=== PATIENT | female | born 1960 | race Caucasian/White ===

== ENCOUNTER 2019-11-09 14:52 | Outpatient (CLI) | payer BC, SELFPAY ==
[2019-11-09 16:17] LABS: Calculated LDL 120 mg/dL; Cholesterol 187 mg/dL (<200); HDL Cholesterol 54 mg/dL (40-60); Triglyceride 65 mg/dL (<150)
[2019-11-09 16:34] LABS: Hemoglobin A1C 5.4 % (4.5-6.2)
[2019-11-10 04:46] LABS: Vitamin D 25 Total 42.1 ng/ml (30-100)
== END 2019-11-09 15:12 ==
PROVIDERS: Nurse Practitioner Women's Health; PCP Family Medicine; Visit Provider Advanced Practice Midwife
DX: Z13.220 Encounter for screening for lipoid disorders (principal); Z13.21 Encounter for screening for nutritional disorder; Z13.1 Encounter for screening for diabetes mellitus
CPT/HCPCS: 36415; 80061; 82306; 83036

== ENCOUNTER 2019-11-09 16:00 | Outpatient (REF) | payer BC, SELFPAY ==
--- NOTE | 2019-11-09 15:00 | PAPFT_PTH ---
PATIENT: Joanne Conroy LOC: [facility] U#:[id number] AGE/SX: 59/F ROOM: RE11/09/[address]: Madalyn Levy NP : 1960 BED: DIS: 11/09/2019 SPEC #: [id number] RECD: 11/09/19 18:08 STATUS: MAYUR RECoreen #: [id number] JOSESITO: 11/09/19 15:[address]: Madalyn Levy NP DEPT: [facility] Cytology RECD BY: Shikha Choe ENTERED: 11/09/19 18:09 SP TYPE: PAPFT OTHR DR: Kim Hernandez Tissues: 1 - CX/ENDOCX FOR PAP SMEARS Procedures: PAP THIN PREP/UVM Screening HPV DNA PROBE Comments: [id number]
== END 2019-11-09 16:20 ==
LOC: LBN 16:00
PROVIDERS: PCP Family Medicine; Visit Provider Nurse Practitioner Women's Health
DX: Z12.4 Encounter for screening for malignant neoplasm of cervix (principal)
CPT/HCPCS: 88142; 87624

== ENCOUNTER 2019-12-01 01:58 | Outpatient (CLI) | payer BC, SELFPAY ==
--- NOTE | 2019-12-01 12:48 | DI.MAMMO_ITS ---
EXAM: MG MAMMO SCREENING CLINICAL HISTORY: screening TECHNIQUE: Mammograms were interpreted according to the usual protocol including computer analysis w [employer] CAD system, tomosynthesis and C-view imaging. COMPARISON: Current examination is compared with previous examinations including December 2017 FINDINGS: The breasts are of moderate density with fairly symmetrical distribution of fibroglandular tissue. N o dominant mass or clumped microcalcification is identified in either breast. Current examination is compared with previous examinations including December 2017 and there has been no gross interval alondra nge in appearance in comparison with the previous studies. IMPRESSION: No specific evidence of malignancy at this time. Routine screening examinations are suggested at year ly intervals in this age group according to the ACS/ACR guidelines. Category 1, breast density categ ory B. BI-RADS Cat 1 - Negative Breast Density - Category B - Scattered areas of fibroglandular density
== END 2019-12-01 02:18 ==
PROVIDERS: PCP Family Medicine; Visit Provider Nurse Practitioner Women's Health
DX: Z12.31 Encounter for screening mammogram for malignant neoplasm of breast (principal)
CPT/HCPCS: 77063; 77067

== ENCOUNTER 2022-07-17 16:17 | Outpatient (REF) | payer BC, SELFPAY ==
--- NOTE | 2022-07-17 16:00 | PAPFT_PTH ---
PATIENT: Joanne Conroy LOC: [facility] U#:[id number] AGE/SX: 61/F ROOM: RE07/17/[address]: Camryn Vasquez : 1960 BED: DIS: 07/17/2022 SPEC #: [id number] RECD: 07/17/22 17:00 STATUS: MAYUR SPEARS #: [id number] JOSESITO: 07/17/22 16:[address]: Camryn Vasquez DEPT: [facility] Cytology RECD BY: Shikha Choe ENTERED: 07/17/22 17:00 SP TYPE: PAPFT OTHR DR: Kim Hernandez Tissues: 1 - CX/ENDOCX FOR PAP SMEARS Procedures: PAP THIN PREP/UVM Screening HPV DNA PROBE Comments: [id number]
== END 2022-07-17 16:18 | disposition home or self-care (01) ==
LOC: LBN 16:17
PROVIDERS: PCP Family Medicine; Visit Provider Obstetrics & Gynecology Gynecology
DX: Z12.4 Encounter for screening for malignant neoplasm of cervix (principal); Z11.51 Encounter for screening for human papillomavirus (HPV)
CPT/HCPCS: 88142; 87624

== ENCOUNTER 2023-06-29 09:45 | Outpatient (REF) | payer BC, SELFPAY ==
[2023-06-29 15:46] LABS: ALT 24 U/L (14-59); AST 14 U/L (15-37); Albumin 3.7 g/dL (3.4-5.0); Alkaline Phosphatase 49 U/L (46-116); Anion Gap 8.9 mmol/L (3-11); BUN 23 mg/dL (7-18); Bilirubin, Total 0.5 mg/dL (0.2-1.0); CO2 28.1 mmol/L (21.0-32.0); CREATININE 0.8 mg/dL (0.55-1.02); Calcium 8.9 mg/dL (8.5-10.1); Calculated LDL 155 mg/dL (<100); Chloride 104 mmol/L (98-107); Cholesterol 237 mg/dL (<200); Estimated GFR 82.74 (mL/min/1.73m2); Glucose 101 mg/dL (74-106); HDL Cholesterol 63 mg/dL (40-60); Potassium 4.5 mmol/L (3.5-5.1); Sodium 141 mmol/L (136-145); TSH (W/Ref FT4) 1.78 uIU/mL (0.36-3.74); Total Protein 7.1 g/dL (6.4-8.2); Triglyceride 95 mg/dL (<150)
[2023-06-29 16:55] LABS: Hemoglobin A1C 5.5 % (<5.7)
== END 2023-06-29 09:46 | disposition home or self-care (01) ==
LOC: NCHCN 09:45
PROVIDERS: PCP Family Medicine; Visit Provider Nurse Practitioner Family
DX: E78.5 Hyperlipidemia, unspecified (principal); K74.60 Unspecified cirrhosis of liver; Z86.19 Personal history of other infectious and parasitic diseases; R63.5 Abnormal weight gain; R79.89 Other specified abnormal findings of blood chemistry
CPT/HCPCS: 80053; 80061; 83036; 84443

== ENCOUNTER 2023-09-03 13:28 | Outpatient (REF) | payer BC, SELFPAY ==
--- OUTSIDE RECORDS SUMMARY | 2023-09-03 13:29 | XMS_ITS | Continuity of Care Document ---
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 Name Role Phone Edy Alfonso Md, V Primary Care Physician Encounter LTTL_MS FIN NBR [id number] Date(s): 05/21/23 - 05/21/[address] [address]- [place] Discharge Disposition: Home or Self Care Attending Physician: JOSIAH KELLER Admitting Physician: JOSIAH KELLER Referring Physician: Edy Alfonso Md, V Results Radiology Reports * Exam Date Time Procedure Performing Provider Status 05/21/23 8:42 AM US Abdomen Limited Warner Guillory; Au th (Verified) Notes: (US Abdomen Limited) Reason For Exam: HEPATIC CIRRHOSIS US Abdomen Limited EXAM DESCRIPTION: US Abdomen Limited 05/21/2023 INDICATION: HEPATIC CIRRHOSIS TECHNIQUE: Grayscale and color Doppler ultrasound examination of the right upper quadrant region of the abdomen. COMPARISON: 11/27/2022 FINDINGS: Liver measures 15.3 cm in maximum dimension. Mild diffusely increased hepatic echogenicity suggesting hepatic steatosis as described previously. No focal hepatic lesion identified. The main portal vein is patent with normal flow direction No ascites in right upper quadrant The spleen is normal in size measuring 10.3 cm in maximum dimension Pancreas partly obscured by overlying bowel gas. Visualized portions are unremarkable No cholelithiasis, gallbladder wall thickening or pericholecystic fluid accumulation. No biliary dilatation with common bile duct diameter of 2.2 mm. Negative sonographic Kelsey sign Right kidney measures 9.9 cm in maximum dimension. No focal right renal mass, hydronephrosis or perinephric fluid collection. IMPRESSION: Findings suggesting hepatic steatosis as described previously. No focal hepatic lesion identified No cholelithiasis or biliary dilatation. JOB #: [id number] Final Signed by: Bill Norton MD Signed (Electronic Signature): 05/21/2023 9:01 am Patient Care team information Care Team Personnel Name: Edy Alfonso Md, V Position: Physician Member Role: Primary Care Physician Address: Address: [place] [address]- Care Team Related Persons Name: FABRICE SALAZAR Address: Home
--- OUTSIDE RECORDS SUMMARY | 2023-09-03 13:29 | XMS_ITS | Continuity of Care Document ---
Author Name Unknown Organization [facility] Address [address] [place] [address] Care Team Providers Care Community Youth Secretary Name Role Phone Kaden Bradford, Edy Julio Primary Care Physician [phone] Encounter LTTL_MS FIN NBR [id number] Date(s): 11/27/22 - 11/27/[address] [address]- [place] Discharge Disposition: Home or Self Care Attending Physician: Juanjo Castaneda DO Admitting Physician: Juanjo Castaneda DO Referring Physician: Juanjo Castaneda DO Results Radiology Reports * Exam Date Time Procedure Performing Provider Status 11/27/22 8:31 AM US Abdomen Limited DomainUser, Rajni alan; Auth (Verified) Notes: (US Abdomen Limited) Reason For Exam: hepatitis US Abdomen Limited EXAM DESCRIPTION: US Abdomen Limited 11/27/2022 INDICATION: HEPATITIS TECHNIQUE: Grayscale and color Doppler ultrasound examination of the right upper quadrant region of the abdomen. COMPARISON: 12/11/2021 FINDINGS: Liver measures 15.3 cm in maximum dimension. Diffusely increased hepatic echogenicity suggesting hepatic steatosis. No focal hepatic lesion identified. No significant hepatic surface nodularity. The main portal vein is patent with normal flow direction. No ascites in right upper quadrant. No cholelithiasis, gallbladder wall thickening or pericholecystic fluid accumulation. No biliary dilatation with common bile duct diameter of 3 mm. Negative sonographic Kelsey sign The pancreas is unremarkable Right kidney measures 10.2 cm in maximum dimension. No focal right renal mass, hydronephrosis or perinephric fluid collection. IMPRESSION: Findings suggesting hepatic steatosis. No focal hepatic lesion. No cholelithiasis or biliary dilatation. JOB #: [id number] Final Signed by: Bill Norton MD Signed (Electronic Signature): 11/27/2022 8:39 am US Abdomen limited * Bill Norton MD: VERIFY, VERIFY Event Display: Report EXAM DESCRIPTION: US Abdomen Limited 11/27/2022 INDICATION: HEPATITIS TECHNIQUE: Grayscale and color Doppler ultrasound examination of the right upper quadrant region of the abdomen. COMPARISON: 12/11/2021 FINDINGS: Liver measures 15.3 cm in maximum dimension. Diffusely increased hepatic echogenicity suggesting hepatic steatosis. No focal hepatic lesion identified. No significant hepatic surface nodularity. The main portal vein is patent with normal flow direction. No ascites in right upper quadrant. No cholelithiasis, gallbladder wall thickening or pericholecystic fluid accumulation. No biliary dilatation with common bile duct diameter of 3 mm. Negative sonographic Kelsey sign The pancreas is unremarkable Right kidney measures 10.2 cm in maximum dimension. No focal right renal mass, hydronephrosis or perinephric fluid collection. IMPRESSION: Findings suggesting hepatic steatosis. No focal hepatic lesion. No cholelithiasis or biliary dilatation. JOB #: [id number] Final Signed by: Bill Norton MD Signed (Electronic Signature): 11/27/2022 8:39 am Patient Care team information Personnel Name: Edy Alfonso Md, V Address: Address: [address]
[2023-09-03 19:14] LABS: Vitamin D 25 Total 33.2 ng/mL (30-100)
== END 2023-09-03 13:29 | disposition home or self-care (01) ==
LOC: NCHCN 13:28
PROVIDERS: PCP Family Medicine; Visit Provider Nurse Practitioner Family
DX: Z86.39 Personal history of other endocrine, nutritional and metabolic disease (principal)
CPT/HCPCS: 82306

== ENCOUNTER → 2023-09-09 01:07 | Outpatient (CLI) | payer BC, SELFPAY ==
--- NOTE | 2023-09-09 12:59 | DI.MAMMO_ITS ---
Exam(s) MAMMO SCREENING EXAM: MAMMO SCREENING CLINICAL HISTORY: SCREENING, Z12.39 TECHNIQUE: Mammograms were interpreted according to the usual protocol including computer analysis w [employer] CAD system, tomosynthesis and C-view imaging. COMPARISON: 2015 through 2019 FINDINGS: The breasts are composed of mainly fatty density , Breast Density category A. No suspicious masses or suspicious microcalcifications are seen. No skin thickening or abnormal axillary lymph nodes are seen. There has been no significant change from prior exams. IMPRESSION: BI-RADS Category 1, Negative mammogram Yearly screening mammography is recommended. Breast Density - Category A, fatty density. A negative radiographic report should not delay biopsy if a dominant or clinically suspicious mass is present. Up to ten percent of cancers are not identified on mammography. A negative report may reinforce clinical impression. Adenosis and dense breasts may obscure an underlying neoplasm. False positive reports average 6 to 10%. Patient will receive a letter notifying them of these results.
== END ==
PROVIDERS: PCP Family Medicine; Visit Provider Nurse Practitioner Family
DX: Z12.31 Encounter for screening mammogram for malignant neoplasm of breast (principal)
CPT/HCPCS: 77063; 77067

== ENCOUNTER 2025-02-14 16:26 | Outpatient (REF) | payer BC, SELFPAY ==
[2025-02-14 15:49] LABS: Abs Immature Grans 0.02 10^3/uL (0.0-0.06); Absolute Basophil Count 0.04 10^3/uL (0.0-0.2); Absolute Eosinophil Count 0.07 10^3/uL (0.0-0.7); Absolute Monocyte Count 0.62 10^3/uL (0.1-0.8); Basophils % 0.7 %; Eosinophils % 1.2 %; HCT 40.6 % (36.0-46.0); HGB 13.4 g/dL (11.2-15.7); Immature Grans % 0.3 %; Lymphocytes % 24.8 %; MCH 29.4 pg (27.0-33.0); MCV 89 fL (80-95); MPV 11.2 fL (8.0-11.0); Monocytes % 10.2 %; Neutrophils % 62.8 %; Platelet Count 216 10^3/uL (130-400); RBC 4.56 10^6/uL (3.93-5.22); RDW 12.5 % (11.7-14.6); RDW-SD 41.2 fL; WBC 6.05 10^3/uL (4.4-10.8)
[2025-02-14 16:18] LABS: ALT 22 U/L (14-59); AST 14 U/L (15-37); Alkaline Phosphatase 56 U/L (46-116); Anion Gap 8.7 mmol/L (3-11); BUN 12 mg/dL (7-18); Bilirubin, Total 0.4 mg/dL (0.2-1.0); CO2 30.3 mmol/L (21.0-32.0); CREATININE 0.7 mg/dL (0.55-1.02); Calcium 9.2 mg/dL (8.5-10.1); Calculated LDL 122 mg/dL (<100); Chloride 103 mmol/L (98-107); Cholesterol 209 mg/dL (<200); Estimated GFR 95.92 (mL/min/1.73m2); Glucose 86 mg/dL (74-106); HDL Cholesterol 68 mg/dL (>or=50); Potassium 4.3 mmol/L (3.5-5.1); Sodium 142 mmol/L (136-145); TSH 0.96 uIU/mL (0.36-3.74); Total Protein 7.3 g/dL (6.4-8.2); Triglyceride 97 mg/dL (<150)
[2025-02-14 16:43] LABS: Hemoglobin A1C 5.5 % (<5.7)
[2025-02-14 21:48] LABS: T4, Free 1.1 ng/dL (0.8-2.2)
== END 2025-02-14 16:27 | disposition home or self-care (01) ==
LOC: NCHCN 16:26
PROVIDERS: Visit Provider Nurse Practitioner Family
DX: I10 Essential (primary) hypertension (principal); E78.5 Hyperlipidemia, unspecified; E66.9 Obesity, unspecified; Z68.30 Body mass index [BMI] 30.0-30.9, adult
CPT/HCPCS: 80053; 80061; 83036; 84439; 84443; 85025

== ENCOUNTER 2025-07-04 16:15 | Outpatient (REF) | payer BC, SELFPAY ==
[2025-07-04 20:20] LABS: COMMENT (LAB VIEW ONLY) < 13.00 mg/dL; Microalb ug/mg Crea 100.0 ug/mg Cr
[2025-07-04 21:05] LABS: ALT 32 U/L (14-59); AST 17 U/L (15-37); Albumin 4.1 g/dL (3.4-5.0); Alkaline Phosphatase 55 U/L (46-116); Anion Gap 10.2 mmol/L (3-11); BUN 24 mg/dL (7-18); Bilirubin, Total 0.4 mg/dL (0.2-1.0); CO2 26.8 mmol/L (21.0-32.0); Calcium 9.4 mg/dL (8.5-10.1); Calculated LDL 129 mg/dL (<100); Chloride 103 mmol/L (98-107); Cholesterol 225 mg/dL (<200); Estimated GFR 81.72 (mL/min/1.73m2); Glucose 97 mg/dL (74-106); HDL Cholesterol 66 mg/dL (>or=50); Potassium 4.0 mmol/L (3.5-5.1); Sodium 140 mmol/L (136-145); Total Protein 7.6 g/dL (6.4-8.2); Triglyceride 151 mg/dL (<150)
== END 2025-07-04 16:16 | disposition home or self-care (01) ==
LOC: NCHCN 16:15
PROVIDERS: PCP Nurse Practitioner Family; Visit Provider Student in an Organized Health Care Education/Training Program
DX: E78.2 Mixed hyperlipidemia (principal); I10 Essential (primary) hypertension
CPT/HCPCS: 80053; 80061; 82043; 82570

== ENCOUNTER 2025-07-27 13:34 | Outpatient (CLI) | payer BC, SELFPAY ==
--- NOTE | 2025-07-27 14:26 | DI.DEXA_ITS ---
Exam(s) XR DEXA BONE DENSITY W/WO SLIM EXAM: XR DEXA BONE DENSITY W/WO SLIM CLINICAL HISTORY: SCREENING FOR OSTEOPOROSIS,Z13.820 TECHNIQUE: Routine DEXA evaluation of the lumbar spine, hip, or forearm. COMPARISON: No exams were available for comparison FINDINGS: Performed on a [employer] unit. Lateral image: No compression fracture evident. Lumbar Spine total T-score: 1.1 which is within normal limits Hip total T-score:1.9 which is within normal limits Independent reading at the level of the femoral neck yields T-score of -0.7 which is within normal limits Forearm total T-score: 0.0 which is within normal limits. IMPRESSION: Bone mineral density measures in the normal range. Fracture risk is low. Note: Any spine fracture indicates 5x risk for subsequent spine fracture and 2x risk for subsequent hip fracture. World Health Organization criteria for BMD interpretation classify patients: Normal...... T- Score at or above -1.0 Osteopenic... T- Score between -1.0 and -2.5 Osteoporosis... T-Score at or below -2.5
== END 2025-07-27 13:54 ==
PROVIDERS: PCP Student in an Organized Health Care Education/Training Program; Visit Provider Nurse Practitioner Family
DX: Z13.820 Encounter for screening for osteoporosis (principal)
CPT/HCPCS: 77080

== ENCOUNTER 2025-08-09 14:50 | Outpatient (CLI) | payer BC, SELFPAY ==
[2025-08-09 13:29] LABS: Anion Gap 6.0 mmol/L (3-11); BUN 14 mg/dL (7-18); CO2 31.0 mmol/L (21.0-32.0); Calcium 9.2 mg/dL (8.5-10.1); Chloride 104 mmol/L (98-107); Estimated GFR 95.92 (mL/min/1.73m2); Glucose 101 mg/dL (74-106); Potassium 4.3 mmol/L (3.5-5.1); Sodium 141 mmol/L (136-145)
== END 2025-08-09 14:51 | disposition home or self-care (01) ==
LOC: LBO 14:51
PROVIDERS: PCP Student in an Organized Health Care Education/Training Program; Visit Provider Student in an Organized Health Care Education/Training Program
DX: I10 Essential (primary) hypertension (principal)
CPT/HCPCS: 36415; 80048

== ENCOUNTER 2025-09-06 10:19 | Outpatient (REF) | payer BC, SELFPAY ==
[2025-09-06 16:07] LABS: Anion Gap 11.8 mmol/L (3-11); BUN 11 mg/dL (7-18); CO2 25.2 mmol/L (21.0-32.0); Calcium 8.7 mg/dL (8.5-10.1); Calculated LDL 104 mg/dL (<100); Chloride 105 mmol/L (98-107); Cholesterol 207 mg/dL (<200); Estimated GFR 95.92 (mL/min/1.73m2); Glucose 109 mg/dL (74-106); HDL Cholesterol 69 mg/dL (>or=50); Potassium 4.2 mmol/L (3.5-5.1); Sodium 142 mmol/L (136-145); Triglyceride 171 mg/dL (<150)
== END 2025-09-06 10:20 | disposition home or self-care (01) ==
LOC: NCHCN 10:19
PROVIDERS: PCP Student in an Organized Health Care Education/Training Program; Visit Provider Student in an Organized Health Care Education/Training Program
DX: E78.5 Hyperlipidemia, unspecified (principal)
CPT/HCPCS: 80048; 80061